=== PATIENT | male | born 1965 | race Caucasian/White ===

== ENCOUNTER 2016-08-15 10:12 | Emergency (ER) | payer SELFPAY ==
--- NOTE | 2016-08-15 10:31 | CPEKG ---
Heart Rate: 67 RR Interval: 896 P-R Interval: 152 QRSD Interval: 74 QT Interval: 372 QTC Interval: 393 P [place]: 61 QRS [place]: 42 T Wave [place]: 61 EKG Severity - NORMAL ECG - EKG Impression: SINUS RHYTHM Electronically Signed By: Floyd Jimenez 15-Aug-2016 10:42:30
--- NOTE | 2016-08-15 10:35 | EDPHY ---
H & P Stated Complaint: HPB Time Seen by Provider: 08/15/16 10:25 HPI/ROS: CHIEF COMPLAINT: "High blood pressure" HISTORY OF PRESENT ILLNESS: 50-year-old male arrives via private vehicle complaining of hypertension. States that [facility] over a rash on his penis which was subsequently diagnosed as yeast base rash. While there however his blood pressure was checked and has systolic 180 and was recommended that he keep a blood pressure journal. He also bought a blood pressure cough and noticed that his blood pressures have been consistently in the 180 systolic. He therefore came to the ER for evaluation. He has not have primary care provider. He has no complaints of pain or discomfort. He works in construction and notes that he never experiences chest pain or dyspnea with exertional activities, never has to cease activity prematurely secondary to chest pain, syncope, near syncope , dyspnea. Urinary habits have been normal. He denies: Abdominal pain, back or flank pain, headache, visual disturbance. PRIMARY CARE PROVIDER: none REVIEW OF SYSTEMS: A ten point review of systems was performed and is negative with the exception of the items mentioned in the HPI PAST MEDICAL & SURGICAL HISTORY: No pertinent medical or surgical history SOCIAL HISTORY: Nonsmoker. Intermittent marijuana use. No cocaine use. FAMILY HISTORY: No family history of coronary artery disease or vasculopathy PHYSICAL EXAM (Prior to examination, patient consented to physical exam, hands were washed and my usual and customary physical exam procedures followed) 1) GENERAL: Well-developed, well-nourished, alert and oriented. Appears to be in no acute distress. 2) HEAD: Normocephalic, atraumatic 3) HEENT: Pupils equal, round, reactive to light bilaterally. Sclera anicteric. Nasopharynx, oropharynx, clear, no lesions. Ears bilaterally with normal tympanic membranes. 4) NECK: Full range of motion, no meningeal signs. No bruit 5) LUNGS: Clear auscultation bilaterally, no wheezes, no rhonchi, no retractions. 6) HEART: Regular rate and rhythm, no murmur, no heave, no gallop. 7) ABDOMEN: No guarding, no rebound, no focal tenderness, negative McBurney's, negative Cunha's, negative Rovsing's, negative peritoneal sign, 8) MUSCULOSKELETAL: Moving all extremities, no focal areas of tenderness, no obvious trauma. No peripheral edema or discoloration. 9) BACK: No CVA tenderness, no midline vertebral tenderness, no fluctuance, no step-off, no obvious trauma, no visual or palpable abnormality. 10) SKIN: No rash, no petechiae. 11) Psychiatric: Patient is oriented X 3, there is no agitation. DIFFERENTIAL DIAGNOSIS: in no particular order including but not limited to hypertensive crisis, hypertensive urgency, end-organ damage - Personal History Current Tetanus/Diphtheria Vaccine: Yes - Medical/Surgical History Hx Asthma: No Hx Chronic Respiratory Disease: No Hx Diabetes: No Hx Cardiac Disease: No Hx Renal Disease: No Hx Cirrhosis: No Hx Alcoholism: No Hx HIV/AIDS: No Hx Splenectomy or Spleen Trauma: No Other PMH: DENIES - Social History Smoking Status: Former smoker Constitutional: Initial Vital Signs Temperature (C) 36.3 C 08/15/16 10:17 Heart Rate 71 08/15/16 10:17 Respiratory Rate 16 08/15/16 10:17 Blood Pressure 176/105 H 08/15/16 10:17 O2 Sat (%) 97 08/15/16 10:17 O2 Delivery Mode Room Air Allergies/Adverse Reactions: No Known Allergies Allergy (Unverified 08/15/16 10:16) Home Medications: Medication Instructions Recorded Hydrochlorothiazide [HCTZ (*)] 12.5 mg PO DAILY #15 cap 08/15/16 Medical Decision Making ED Course/Re-evaluation: This patient has been re-evaluated with serial exams. Discussed the case with Dr. Floyd Jimenez in the emergency department. The emergency department case management coordinator has consulted as well and has arranged for follow-up and establishment of primary care with the [facility] tomorrow. the patient is asymptomatic. He has no evidence of end-organ damage. We had multiple lengthy discussions and we discussed, among many topics , non pharmacologic therapy for hypertension including, but not limited to, reduction of sodium intake, exercise , limited alcohol use. we also discussed pharmacologic intervention. He will be started on hydrochlorothiazide. - Data Points Laboratory Results: Laboratory Results 08/15/16 10:10 08/15/16 10:10 01/17/17 10:10 WBC 8.79 10^3/uL (3.80-9.50) RBC 5.07 10^6/uL (4.40-6.38) Hgb 16.2 g/dL (13.7-17.5) Hct 45.0 % (40.0-51.0) MCV 88.8 fL (81.5-99.8) MCH 32.0 pg (27.9-34.1) MCHC 36.0 g/dL (32.4-36.7) RDW 11.9 % (11.5-15.2) Plt Count 243 10^3/uL (150-400) MPV 9.3 fL (8.7-11.7) Neut % (Auto) 69.6 % (39.3-74.2) Lymph % (Auto) 22.3 % (15.0-45.0) [place] % (Auto) 6.5 % (4.5-13.0) Eos % (Auto) 0.8 % (0.6-7.6) Baso % (Auto) 0.6 % (0.3-1.7) Nucleat RBC Rel Count 0.0 % (0.0-0.2) Absolute Neuts (auto) 6.12 10^3/uL (1.70-6.50) Absolute Lymphs (auto) 1.96 10^3/uL (1.00-3.00) Absolute Monos (auto) 0.57 10^3/uL (0.30-0.80) Absolute Eos (auto) 0.07 10^3/uL (0.03-0.40) Absolute Basos (auto) 0.05 10^3/uL (0.02-0.10) Absolute Nucleated RBC 0.00 10^3/uL (0-0.01) Immature Gran % 0.2 % (0.0-1.1) Immature Gran # 0.02 10^3/uL (0.00-0.10) Sodium 142 mEq/L (134-144) Potassium 4.2 mEq/L (3.5-5.2) Chloride 103 mEq/L (97-110) Carbon Dioxide 27 mEq/l (22-31) Anion Gap 12 mEq/L (8-16) BUN 20 mg/dL (7-23) Creatinine 0.9 mg/dL (0.7-1.3) Estimated GFR > 60 Glucose 104 H mg/dL (70-100) Calcium 9.7 mg/dL (8.5-10.4) Departure - Departure Disposition: Home, Routine, Self-Care Clinical Impression: Hypertension Qualifiers: Hypertension type: essential hypertension Qualifier Code: (I10) Essential ( primary) hypertension Condition: Good Instructions: Heart Healthy Diet (ED), Hypertension (ED) Additional Instructions: Otr, We have made you an appointment at [facility] in, located at [address] [place] [address] in [place] on August 16. Please arrive at 915 for financial screening (upstairs when you arrive. Your actual appointment is at 1005, downstairs with Eli Ellis on the purple pod. She will be able to access your records from the emergency department today and assist you with getting your blood pressure within normal limits. [facility] will be a wonderful resource for you and your health maintenance. If there is any reason you are unable to make this appointment, please call them at [phone]. Please call the [facility] Emergency Department Case Management office if you have any questions or need additional assistance. [phone] Call 911 if you develop chest pain, visual problems, headache, shortness of breath or any other symptoms that concern you Referrals: [facility] [Outside] - 08/16/16 9:15 am Prescriptions: Hydrochlorothiazide [HCTZ (*)] 12.5 mg PO DAILY #15 cap
[2016-08-15 10:46] LABS: % IMMATURE GRANULYOCYTES 0.2 % (0.0-1.1); ABSOLUTE IMMATURE GRANULOCYTES 0.02 10^3/uL (0.00-0.10); ADD DIFF? NO; ADD MORPH? NO; ADD SCAN? NO; ATYPICAL LYMPHOCYTE FLAG 10 (0-99); FRAGMENT RBC FLAG 0 (0-99); HEMOGLOBIN 16.2 g/dL (13.7-17.5); LEFT SHIFT FLG 0 (0-99); LIPEMIA HEMOLYSIS FLAG 90 (0-99); MEAN CELL VOLUME 88.8 fL (81.5-99.8); MEAN PLATELET VOLUME 9.3 fL (8.7-11.7); PLATELET CLUMPS FLAG 0 (0-99); PLATELET COUNT 243 10^3/uL (150-400); RED BLOOD CELL COUNT 5.07 10^6/uL (4.40-6.38); RED CELL DISTRIBUTION WIDTH 11.9 % (11.5-15.2)
[2016-08-15 11:17] LABS: ANION GAP 12 mEq/L (8-16); CALCIUM 9.7 mg/dL (8.5-10.4); CARBON DIOXIDE 27 mEq/l (22-31); CHLORIDE 103 mEq/L (97-110); CREATININE 0.9 mg/dL (0.7-1.3); GLOMERULAR FILTRATION RATE > 60; GLUCOSE 104 mg/dL (70-100); POTASSIUM 4.2 mEq/L (3.5-5.2); SODIUM 142 mEq/L (134-144)
[2016-08-15 12:12] VITALS: BP 191/108; PULSE 60; RESP 14; TEMP 98.2; O2SAT 98
[2016-08-16] MEDS ORDERED: HYDROCHLOROTHIAZIDE 12.5 MG CAP PO ONE (11:33)
== END 2016-08-15 12:11 | disposition home or self-care (01) ==
DX: I10 Essential (primary) hypertension (principal); Z87.891 Personal history of nicotine dependence